=== PATIENT | male | born 1990 | race Two or more races ===

== ENCOUNTER 2021-01-07 10:08 | Emergency (ER) | payer OTHER ==
[~2021-01-07] VITALS: Ht 185.4 cm; Wt 68.0 kg
[2021-01-07 10:16] VITALS: BP 151/91
--- NOTE | 2021-01-07 10:53 | NUR ---
Patient discharged to home in stable condition. Written and verbal after care instructions given. Patient verbalizes understanding of instruction.
== END 2021-01-07 10:52 | disposition home or self-care (01) ==
LOC: ER 10:12
DX: S06.0X0A Concussion without loss of consciousness, initial encounter (principal); W22.8XXA Striking against or struck by other objects, initial encounter; Y93.89 Activity, other specified; Y92.89 Other specified places as the place of occurrence of the external cause; Y99.8 Other external cause status